=== PATIENT | male | born 1985 | race American Indian/Alaskan Native ===

== ENCOUNTER 2019-05-22 21:12 | Emergency (ER) | payer SELFPAY ==
--- NOTE | 2019-05-22 21:51 | Event Note ---
ED Screening Note Date of service: 05/22/19 Time: 21:49 ED Screening Note: 33 y/o male comes in for abd pain and dysuria time 2 day. + nausea, PMH HIV on meds This initial assessment/diagnostic orders/clinical plan/treatment(s) is/are subject to change based on patients health status, clinical progression and re- assessment by fellow clinical providers in the ED. Further treatment and workup at subsequent clinical providers discretion. Patient/guardian urged not to elope from the ED as their condition may be serious if not clinically assessed and managed. Initial orders include:
[2019-05-22 23:10] LABS: Bilirubin,Urine NEG (Negative); Blood,Urine NEG (Negative); Calcium Oxalate Crystals,Urine 1+; Color,Urine Yellow (Yellow); Mucus,Urine 2+ /HPF; Protein,Urine <15 mg/dL mg/dL (Negative); RBC,Urine < 1.0 /HPF (0.0-6.0)
--- NOTE | 2019-05-22 23:47 | Emergency Department Report ---
ED Abdominal Pain HPI - General Chief Complaint: Abdominal Pain Stated Complaint: ABD PAIN/PAINFUL URINATION Time Seen by Provider: 05/22/19 22:53 Source: patient Mode of arrival: Ambulatory Limitations: No Limitations - History of Present Illness Initial Comments: 33 y/o male comes in for abd pain and dysuria time 2 day. + nausea, PMH HIV on meds pain is 4/10 with urination only no n/v no fever or chills no hematuria no penile discharge Onset/Timin -: days(s) Location: R flank Radiation: suprapubic Migration to: no migration Severity: moderate Severity scale (0 -10): 4 Quality: cramping Consistency: intermittent Improves With: nothing Worsens With: other (urination) Associated Symptoms: denies: nausea, vomiting, diarrhea, fever, chills, constipation, dysuria, hematemesis, hematochezia, melena, hematuria, anorexia, syncope Treatments Prior to Arrival: NSAIDs - Related Data Previous Rx's Medication Instructions Recorded Last Taken Type Doxycycline Monohydrate 100 mg PO BID 10 Days #20 tablet 05/22/19 Unknown Rx Allergies Allergy/AdvReac Type Severity Reaction Status Date / Time sulfamethoxazole Allergy Rash Verified 05/22/19 21:16 [From Bactrim] trimethoprim [From Bactrim] Allergy Rash Verified 05/22/19 21:16 ED Review of Systems ROS: Stated complaint: ABD PAIN/PAINFUL URINATION Other details as noted in HPI Constitutional: denies: chills, fever Eyes: denies: eye pain, eye discharge, vision change ENT: denies: ear pain, throat pain Respiratory: denies: cough, shortness of breath, wheezing Cardiovascular: denies: chest pain, palpitations Endocrine: no symptoms reported Gastrointestinal: denies: abdominal pain, nausea, vomiting, diarrhea Genitourinary: denies: urgency, dysuria Musculoskeletal: back pain (right flank pain ). denies: joint swelling, arthralgia Skin: denies: rash, lesions Neurological: denies: headache, weakness, paresthesias Psychiatric: denies: anxiety, depression Hematological/Lymphatic: denies: easy bleeding, easy bruising ED Past Medical Hx - Past Medical History Previous Medical History?: Yes Hx HIV: Yes - Surgical History Past Surgical History?: No - Social History Smoking Status: Current Every Day Smoker Substance Use Type: Marijuana - Medications Home Medications: Home Medications Medication Instructions Recorded Confirmed Last Taken Type Doxycycline Monohydrate 100 mg PO BID 10 Days #20 tablet 05/22/19 Unknown Rx ED Physical Exam - General Limitations: No Limitations General appearance: alert, in no apparent distress - Head Head exam: Present: atraumatic, normocephalic - Eye Eye exam: Present: normal appearance, PERRL, EOMI Pupils: Present: normal accommodation - ENT ENT exam: Present: mucous membranes moist - Neck Neck exam: Present: normal inspection, full ROM. Absent: tenderness, lymphadenopathy, thyromegaly - Respiratory Respiratory exam: Present: normal lung sounds bilaterally. Absent: respiratory distress, wheezes, stridor, chest wall tenderness - Cardiovascular Cardiovascular Exam: Present: regular rate, normal rhythm, normal heart sounds. Absent: systolic murmur, diastolic murmur, rubs, gallop - GI/Abdominal GI/Abdominal exam: Present: soft, normal bowel sounds. Absent: distended, tenderness, guarding, rebound, rigid, mass, bruit, pulsatile mass, hernia - Rectal Rectal exam: Present: deferred - exam: Present: other (exam deferred per patient ) - Extremities Exam Extremities exam: Present: normal inspection, full ROM, normal capillary refill. Absent: tenderness, pedal edema, joint swelling, calf tenderness - Back Exam Back exam: Present: normal inspection, full ROM, tenderness (flank pain with deep palpation ). Absent: CVA tenderness (R), CVA tenderness (L), muscle spasm, paraspinal tenderness, vertebral tenderness, rash noted - Neurological Exam Neurological exam: Present: alert, oriented X3, CN II-XII intact, normal gait, reflexes normal. Absent: motor sensory deficit - Psychiatric Psychiatric exam: Present: normal affect, normal mood - Skin Skin exam: Present: warm, dry, intact, normal color. Absent: rash ED Course Vital Signs 05/22/19 21:27 Temperature 98.5 F Pulse Rate 64 Respiratory 18 Rate Blood Pressure 113/71 O2 Sat by Pulse 99 Oximetry ED Medical Decision Making - Lab Data Labs 05/22/19 21:57 Urine Color Yellow Urine Turbidity Clear Urine pH 6.0 Ur Specific [place] 1.024 Urine Protein <15 mg/dl Urine Glucose (UA) Neg Urine Ketones Tr Urine Blood Neg Urine Nitrite Neg Urine Bilirubin Neg Urine Urobilinogen 4.0 Ur Leukocyte Esterase Neg Urine WBC (Auto) 1.0 Urine RBC (Auto) < 1.0 U Epithel Cells (Auto) < 1.0 Calcium Oxalate Crystal 1+ Urine Mucus 2+ - Medical Decision Making ua: normal there is no fever no n/v pt is tolerating po intake no hx or renal stones, there is no penile discharge, will treat for urethritis /dysuria with rx for doxcycline pt will follow up with pcp in 2-3 days given referral to ID Dr. Bennett pt for dc to home in stable condition at this time. Critical care attestation.: If time is entered above; I have spent that time in minutes in the direct care of this critically ill patient, excluding procedure time. ED Disposition Clinical Impression: Dysuria, Urethritis Disposition: DC-01 TO HOME OR SELFCARE Is pt being admited?: No Does the pt Need Aspirin: No Condition: Stable Instructions: Nonspecific Urethritis in Men (ED) Prescriptions: Doxycycline Monohydrate 100 mg PO BID 10 Days #20 tablet Referrals: BOOGIE BENNETT MD [Staff Physician] - 3-5 Days Forms: Work/School Release Form(ED) Time of Disposition: 23:57
[2019-05-23 01:27] VITALS: BP 100/53
== END 2019-05-23 00:05 | disposition home or self-care (01) ==
LOC: ED 21:12
DX: N34.2 Other urethritis (principal); F17.200 Nicotine dependence, unspecified, uncomplicated; F12.10 Cannabis abuse, uncomplicated; Z79.899 Other long term (current) drug therapy; Z88.2 Allergy status to sulfonamides; Z88.8 Allergy status to other drugs, medicaments and biological substances
CPT/HCPCS: 81001

== ENCOUNTER 2019-07-02 12:47 | Emergency (ER) | payer SELFPAY ==
[2019-07-02] MEDS ORDERED: IBUPROFEN PO ONE (12:57)
--- NOTE | 2019-07-02 12:57 | Event Note ---
ED Screening Note Date of service: 07/02/19 Time: 12:53 ED Screening Note: 33 y o male presents with right knee swelling and generalized pain with coughing phlegm This initial assessment/diagnostic orders/clinical plan/treatment(s) is/are subject to change based on patients health status, clinical progression and re- assessment by fellow clinical providers in the ED. Further treatment and workup at subsequent clinical providers discretion. Patient/guardian urged not to elope from the ED as their condition may be serious if not clinically assessed and managed. Initial orders include: cbc bmp,cxr ACC eval
[2019-07-02 13:52] LABS: Basophils % (Auto) 0.2 % (0.0-1.8); Eosinophils % (Auto) 0.2 % (0.0-4.3); Hematocrit 38.5 % (35.5-45.6); Hemoglobin 12.8 gm/dl (11.8-15.2); Lymphocytes # (Auto) 1.1 K/mm3 (1.2-5.4); Lymphocytes % (Auto) 13.6 % (13.4-35.0); Mean Corpuscular HGB Conc 33 % (32-34); Mean Corpuscular Volume 78 fl (84-94); Monocytes # (Auto) 0.4 K/mm3 (0.0-0.8); Monocytes % (Auto) 4.2 % (0.0-7.3); Platelet Count 259 K/mm3 (140-440); Red Blood Count 4.91 M/mm3 (3.65-5.03); Red Cell Distribution Width 15.3 % (13.2-15.2)
--- NOTE | 2019-07-02 13:58 | XRay Report ---
CHEST 2 VIEWS INDICATION / CLINICAL INFORMATION: Upper Respiratory Infection. Cough COMPARISON: None available. FINDINGS: SUPPORT DEVICES: None. HEART / MEDIASTINUM: No significant abnormality. LUNGS / PLEURA: Extensive pneumonia throughout much of the lingular segment of the left upper lobe. T here may be also be some slight pneumonia within the right middle lobe. Signer Name: Mt Estrella MD Signed: 07/02/2019 1:53 PM Workstation Name: [id number]
[2019-07-02 14:07] LABS: BUN/Creatinine Ratio 14; Blood Urea Nitrogen 11 mg/dL (9-20); Calcium 8.8 mg/dL (8.4-10.2); Hemolysis Index 54
[2019-07-02] MEDS ORDERED: NACL 0.9% 1000 ML 1,000 ML IV ONE ×2 (14:29→16:16)
[2019-07-02] MEDS ORDERED: ZOFRAN IV ONE (14:29)
[2019-07-02] MEDS ORDERED: ROCEPHIN/NS 1 GM/50 ML 1 GM/50 ML BAG IV ONE (14:30)
--- NOTE | 2019-07-02 14:35 | Emergency Department Report ---
ED General Adult HPI - General Chief complaint: Upper Respiratory Infection Stated complaint: GENERAL SICKENESS Time Seen by Provider: 07/02/19 12:53 Source: patient, EMS Mode of arrival: Ambulatory Limitations: No Limitations - History of Present Illness Initial comments: Patient is 33 years old male with history of HIV. Patient presented to the ER complaining of fever, cough nausea for the last 2 weeks. Patient stated the symptoms got worse last night. Patient stated that he is out of his HIV medicine for the last month because he is unable to afford it because he does not have insurance. Patient recently moved to [facility] from [place]. Patient is also complaining of right knee pain for the last 3 days. Patient denied any recent injury or trauma. Severity scale (0 -10): 9 - Related Data Previous Rx's Medication Instructions Recorded Last Taken Type Doxycycline Monohydrate 100 mg PO BID 10 Days #20 tablet 05/22/19 Unknown Rx Allergies Allergy/AdvReac Type Severity Reaction Status Date / Time sulfamethoxazole Allergy Rash Verified 05/22/19 21:16 [From Bactrim] trimethoprim [From Bactrim] Allergy Rash Verified 05/22/19 21:16 ED Review of Systems ROS: Stated complaint: GENERAL SICKENESS Other details as noted in HPI Comment: All other systems reviewed and negative Constitutional: chills, fever ENT: denies: throat pain, congestion Respiratory: cough, shortness of breath. denies: orthopnea, SOB with exertion, SOB at rest, wheezing Cardiovascular: palpitations. denies: chest pain Gastrointestinal: nausea. denies: abdominal pain, vomiting, diarrhea, constipation, hematemesis, melena, hematochezia Musculoskeletal: denies: back pain Neurological: denies: headache, weakness, numbness, paresthesias, confusion, abnormal gait ED Past Medical Hx - Past Medical History Previous Medical History?: Yes Hx HIV: Yes - Surgical History Past Surgical History?: No - Social History Smoking Status: Current Every Day Smoker Substance Use Type: Alcohol - Medications Home Medications: Home Medications Medication Instructions Recorded Confirmed Last Taken Type Doxycycline Monohydrate 100 mg PO BID 10 Days #20 tablet 05/22/19 07/02/19 Unknown Rx ED Physical Exam - General Limitations: No Limitations General appearance: alert, in no apparent distress - Head Head exam: Present: atraumatic, normocephalic, normal inspection - Eye Eye exam: Present: normal appearance, PERRL - ENT ENT exam: Present: normal exam, normal orophraynx, mucous membranes moist - Neck Neck exam: Present: normal inspection, full ROM. Absent: tenderness, meningismus, lymphadenopathy, thyromegaly - Respiratory Respiratory exam: Present: rales. Absent: respiratory distress, wheezes, rhonchi, stridor, accessory muscle use, decreased breath sounds, prolonged expiratory - Cardiovascular Cardiovascular Exam: Present: tachycardia - GI/Abdominal GI/Abdominal exam: Present: soft, normal bowel sounds. Absent: distended, tenderness, guarding, rebound, rigid, organomegaly, mass, bruit, pulsatile mass, hernia - Extremities Exam Extremities exam: Present: normal inspection, full ROM, normal capillary refill. Absent: tenderness, pedal edema, joint swelling, calf tenderness - Back Exam Back exam: Present: normal inspection, full ROM. Absent: tenderness, CVA tenderness (R), CVA tenderness (L), muscle spasm, paraspinal tenderness, vertebral tenderness - Neurological Exam Neurological exam: Present: alert, oriented X3, CN II-XII intact, normal gait, reflexes normal - Psychiatric Psychiatric exam: Present: normal mood - Skin Skin exam: Present: warm, intact, normal color ED Course Vital Signs 07/02/19 07/02/19 07/02/19 12:54 14:51 16:10 Temperature 103.2 F H 99.3 F Pulse Rate 110 H 93 H Respiratory 20 20 20 Rate Blood Pressure 106/71 Blood Pressure 136/109 [Left] O2 Sat by Pulse 95 Oximetry ED Medical Decision Making - Lab Data Result diagrams: 07/02/19 13:29 07/02/19 13:29 - Radiology Data Radiology results: report reviewed - Medical Decision Making Patient is 33 years old male with history of HIV. Patient presented to the ER complaining of fever, cough nausea for the last 2 weeks. Patient stated the symptoms got worse last night. Patient stated that he is out of his HIV medicine for the last month because he is unable to afford it because he does not have insurance. Patient recently moved to [facility] from [place]. Patient is also complaining of right knee pain for the last 3 days. Patient denied any recent injury or trauma Chest x-ray showing extensive pneumonia. I discussed the patient is Dr. Garcia for admission. Critical Care Time: Yes Critical care time in (mins) excluding proc time.: 30 Critical care attestation.: If time is entered above; I have spent that time in minutes in the direct care of this critically ill patient, excluding procedure time. ED Disposition Clinical Impression: Pneumonia, Fever, HIV (human immunodeficiency virus infection) Disposition: DC-09 OP ADMIT IP TO THIS HOSP Is pt being admited?: Yes Condition: Stable Instructions: Bacterial Pneumonia (ED)
--- NOTE | 2019-07-02 15:05 | XRay Report ---
Right knee 3 views INDICATION: Right knee pain. IMPRESSION: No acute findings identified. Signer Name: Mt Estrella MD Signed: 07/02/2019 3:01 PM Workstation Name: [email or web address]
[2019-07-02] MEDS ORDERED: ZITHROMAX 500 MG in NACL 0.9% 250ML 250 ML IV ONE (15:30)
[2019-07-02 15:34] LABS: Alanine Aminotransferase 16 units/L (7-56); Albumin 3.3 g/dL (3.9-5); Bilirubin,Direct < 0.2 mg/dL (0-0.2)
--- NOTE | 2019-07-02 15:36 | History and Physical Report ---
Medications and Allergies Allergies Allergy/AdvReac Type Severity Reaction Status Date / Time sulfamethoxazole Allergy Rash Verified 05/22/19 21:16 [From Bactrim] trimethoprim [From Bactrim] Allergy Rash Verified 05/22/19 21:16 Home Medications Medication Instructions Recorded Confirmed Last Taken Type Doxycycline Monohydrate 100 mg PO BID 10 Days #20 tablet 05/22/19 Unknown Rx Active Meds: Active Medications Azithromycin 500 mg/ Sodium (Chloride) 250 mls @ 250 mls/hr IV ONCE ONE; Protocol Stop: 07/02/19 16:29 Exam - Constitutional Vitals: Temp Pulse Resp BP Pulse Ox 103.2 F H 110 H 20 106/71 95 07/02/19 12:54 07/02/19 12:54 07/02/19 14:51 07/02/19 12:54 07/02/19 12:54 Results - Labs CBC & Chem 7: 07/02/19 13:29 07/02/19 13:29 Labs: Abnormal lab results 07/02/19 07/02/19 07/02/19 Range/Units 13:29 13:29 14:40 MCV 78 L (84-94) fl MCH 26 L (28-32) pg RDW 15.3 H (13.2-15.2) % Lymph # 1.1 L (1.2-5.4) K/mm3 Seg Neutrophils % 81.8 H (40.0-70.0) % Sodium 134 L (137-145) mmol/L Glucose 109 H (75-100) mg/dL Total Protein 8.7 H (6.3-8.2) g/dL Albumin 3.3 L (3.9-5) g/dL
[2019-07-02 16:15] LABS: Bilirubin,Urine NEG (Negative); Blood,Urine NEG (Negative); Color,Urine Yellow (Yellow); Mucus,Urine FEW /HPF; Protein,Urine <15 mg/dL mg/dL (Negative)
--- NOTE | 2019-07-02 17:50 | Cat Scan Report ---
CT head/brain wo con INDICATION: Headache, fever. TECHNIQUE: Routine CT head without contrast. All CT scans at this location are performed using CT dos e reduction for ALARA by means of automated exposure control. COMPARISON: None. FINDINGS: BRAIN / INTRACRANIAL CONTENTS: No acute hemorrhage, mass effect, midline shift, or hydrocephalus. No appreciable acute large territorial or lacunar infarct. No chronic infarct or focal atrophy. Normal b rain volume and ventricular/sulcal size for age. ORBITS: No significant abnormality of visualized orbits. SINUSES / MASTOIDS: No significant abnormality of visualized sinuses and mastoid air cells. ADDITIONAL FINDINGS: None. IMPRESSION: 1. No acute intracranial abnormality. Signer Name: Juan Diego Maldonado MD Signed: 07/02/2019 5:46 PM Workstation Name: [id number]
--- NOTE | 2019-07-02 18:05 | Event Note ---
Date: 07/02/19
[2019-07-02] MEDS ORDERED: TYLENOL PO ONE (20:39)
[2019-07-02] MEDS ORDERED: TYLENOL ONE (20:42)
[2019-07-02 20:58] VITALS: BP 103/63
== END 2019-07-02 20:58 | disposition admitted as inpatient to this hospital (09) ==
LOC: ED 12:47
DX: J18.9 Pneumonia, unspecified organism (principal); Z21 Asymptomatic human immunodeficiency virus [HIV] infection status; M25.561 Pain in right knee; F17.200 Nicotine dependence, unspecified, uncomplicated; Z88.2 Allergy status to sulfonamides
CPT/HCPCS: 36415; 70450; 71046; 73562; 80048; 80076; 81001; 85025; 86308; 87040; 87086; 87400; 96365; 96367; 96375; 99285; J0456; J0696; J2405; J7030; J7050